=== PATIENT | female | born 1960 | race Caucasian/White ===

== ENCOUNTER 2017-06-03 20:20 | Emergency (ER) | payer OTHER ==
[~2017-06-03] VITALS: Ht 165.1 cm; Wt 55.4 kg
[2017-06-03] MEDS ORDERED: BACTRIM,SEPT1 TABLET PO (21:49)
[2017-06-03] MEDS ORDERED: KEFLEX500 MG PO (21:49)
[2017-06-03] MEDS ORDERED: NORCO 5/3251 TABLET PO (21:55)
[2017-06-03 21:59] VITALS: BP 134/65
== END 2017-06-03 22:13 | disposition home or self-care (01) ==
LOC: EME 20:20
DX: L03.114 Cellulitis of left upper limb (principal); M81.0 Age-related osteoporosis without current pathological fracture; K50.90 Crohn's disease, unspecified, without complications; F17.200 Nicotine dependence, unspecified, uncomplicated
CPT/HCPCS: 73130; 99281; 99284